=== PATIENT | male | born 1955 | race Hispanic/Latino ===

== ENCOUNTER 2017-07-19 21:54 | Emergency (ER) | payer OTHER ==
[2017-07-19] MEDS ORDERED: Lidocaine 1% Inj (20ml) IJ ONE (22:20)
--- NOTE | 2017-07-19 22:26 | ED PDOC ---
HPI: General Adult Time Seen by Provider: 07/19/17 21:57 Chief Complaint (Nursing): Abnormal Skin Integrity History Per: Patient Additional Complaint(s): Pt. presents with his brother and friend who states earlier today he fell backward while sitting on a railing. Pt. admits to drinking alcohol. States he drank 5 beers and 2 glasses of wine. Fall was not witnessed but pt. reports no LOC. Currently c/o pain at the site of impact. Denies N/V, neck pain, chest pain , abdominal pain, SOB, extremity pain, hip pain, pelvic pain. Past Medical History Reviewed: Historical Data, Nursing Documentation, Vital Signs Vital Signs: Last Vital Signs Temp 97.6 F 07/19/17 21:57 Pulse 90 07/19/17 21:57 Resp 18 07/19/17 21:57 BP 150/92 H 07/19/17 21:57 Pulse Ox 93 L 07/19/17 22:28 - Family History Family History: States: No Known Family Hx - Home Medications Home Medications: Ambulatory Orders Medication Instructions Recorded Cephalexin [cephalexin] 500 mg PO Q6 #28 cap 07/20/17 - Allergies Allergies/Adverse Reactions: Allergies Allergy/AdvReac Type Severity Reaction Status Date / Time FISH Allergy RASH Verified 07/19/17 21:56 Review of Systems ROS Statement: Except As Marked, All Systems Reviewed And Found Negative Neurological: Positive for: Headache Physical Exam - Reviewed Nursing Documentation Reviewed: Yes Vital Signs Reviewed: Yes - Physical Exam Appears: Positive for: Well, Non-toxic, No Acute Distress Head Exam: Negative for: ATRAUMATIC (6 inch stelate shaped superficial laceration on occipital scalp without swelling or active bleeding), NORMAL INSPECTION, NORMOCEPHALIC Skin: Positive for: Normal Color, Warm, DRY Eye Exam: Positive for: EOMI, Normal appearance, PERRL ENT: Positive for: Normal ENT Inspection Neck: Positive for: Normal, Painless ROM Cardiovascular/Chest: Positive for: Regular Rate, Rhythm Respiratory: Positive for: CNT, Normal Breath Sounds Gastrointestinal/Abdominal: Positive for: Normal Exam, Bowel Sounds, Soft Back: Positive for: Normal Inspection Extremity: Positive for: Normal ROM Neurologic/Psych: Positive for: Alert, Oriented - Laboratory Results Result Diagrams: 07/19/17 22:42 07/19/17 22:42 - ECG O2 Sat by Pulse Oximetry: 93 - Progress ED Course And Treament: Labs ordered. CT head w/o contrast ordered. Tetanus prophylaxis administered. Procedures - Time-Out Type of Procedure: Laceration repair Site of Procedure: occipital sclap Correct Patient (with visual ID + MR# on ID Band): Yes Correct Procedure: Yes Correct Site Marked: Yes PA/Tech: Vanessa - Laceration/Wound Repair Laceration repair Wound Length (cm): 15 Wound's Depth, Shape: superficial Wound Explored: clean Irrigated w/ Saline (ccs): 400 Betadine Prep?: Yes Anesthesia: 1% Lidocaine Wound Repaired With: [facility] (8) Wound Complexity: Intermediate Disposition - Clinical Impression Clinical Impression: Head injury, Scalp laceration, Alcohol intoxication - Patient ED Disposition Is Patient to be Admitted: No - Disposition Disposition: Routine/Home Disposition Time: 02:17 Condition: IMPROVED Additional Instructions: staple removal in 7 days Prescriptions: Cephalexin [cephalexin] 500 mg PO Q6 #28 cap Instructions: Head Injury (ED), Staple Care (ED), Alcohol Intoxication (ED) Forms: [facility] (Romansh)
[2017-07-19] MEDS ORDERED: Povidone Iodine Topical 10% Sol ONE (22:31)
[2017-07-19] MEDS ORDERED: Lidocaine 1% Inj (20ml) ONE (22:32)
[2017-07-19 22:49] LABS: BASO # 0.1 K/uL (0.0-0.2); EOS # 0.1 K/uL (0.0-0.7); EOS % 1.7 % (0.0-4.0); HEMATOCRIT 44.6 % (35.0-51.0); LYMPH # 2.7 K/uL (1.0-4.3); LYMPH % 36.1 % (20.0-40.0); MEAN CELL VOLUME 92.8 fl (80.0-94.0); MEAN CORPUSCULAR HEMOGLOBIN 32.2 pg (27.0-31.0); MEAN CORPUSCULAR HGB CONC 34.7 g/dL (33.0-37.0); MEAN PLATELET VOLUME 7.8 fl (7.2-11.7); MONO # 0.7 K/uL (0.0-0.8); MONO % 9.3 % (0.0-10.0); NEUT # 3.9 K/uL (1.8-7.0); NEUT % 51.9 % (50.0-75.0); NRBC % 0.1 % (0.0-0.0); WHITE BLOOD COUNT 7.4 K/uL (4.8-10.8)
[2017-07-19 22:59] LABS: ALB/GLOB RATIO 1.5 (1.0-2.1); ALCOHOL SERUM 232 mg/dl (0-10); ALKALINE PHOSPHATASE 67 U/L (38-126); ALT/SGPT 49 U/L (21-72); AST/SGOT 37 U/L (17-59); BILIRUBIN,TOTAL 0.4 mg/dl (0.2-1.3); BLOOD UREA NITROGEN 15 mg/dl (9-20); CALCIUM 8.9 mg/dL (8.4-10.2); CARBON DIOXIDE 21 mmol/L (22-30); CHLORIDE 108 mmol/L (98-107); GFR AFRICAN-AMERICAN > 60; GLUCOSE,RANDOM 110 mg/dL (75-110); POTASSIUM 3.9 MMOL/L (3.6-5.0); SODIUM 144 mmol/l (132-148); TOTAL PROTEIN 7.4 G/DL (6.3-8.2)
[2017-07-20 02:26] VITALS: BP 139/76; PULSE 79; RESP 16; TEMP 98.2; O2SAT 100
--- NOTE | 2017-07-20 09:52 | CT ---
PROCEDURE: CT HEAD WITHOUT CONTRAST. HISTORY: trauma COMPARISON: None available. TECHNIQUE: Axial computed tomography images were obtained through the head/brain without intravenous contrast. Radiation dose: Total exam DLP = 879.71 mGy-cm. This CT exam was performed using one or more of the following dose reduction techniques: Automated exposure control, adjustment of the mA and/or kV according to patient size, and/or use of iterative reconstruction technique. FINDINGS: HEMORRHAGE: No acute parenchymal, subarachnoid or extra-axial hemorrhage. Hemorrhage. BRAIN: There appears be some minor diffuse/confluent chronic periventricular white matter ischemic changes. Loss Mild volume loss VENTRICLES: No obstructive hydrocephalus. . Note made of a small cavum velum interpositum. CALVARIUM: No acute calvarial fractures. Small right posterior superior parietal scalp laceration and minor surrounding soft tissue swelling. PARANASAL SINUSES: Mild mucosal thickening seen within the mid left maxillary antrum several ethmoid air cells and right aspect of sphenoid sinus MASTOID AIR CELLS: Unremarkable as visualized. No inflammatory changes. OTHER FINDINGS: None. IMPRESSION: No acute intracranial hemorrhage. Small right posterior superior parietal scalp laceration and surrounding soft tissue swelling. Suspect minimal chronic periventricular white matter ischemic changes. Mild generalized volume loss. Preliminary report provided by overnight radiology service.
== END 2017-07-20 02:28 | disposition home or self-care (01) ==
LOC: H.ER 21:54
DX: S01.01XA Laceration without foreign body of scalp, initial encounter (principal); F10.129 Alcohol abuse with intoxication, unspecified; Z23 Encounter for immunization; S09.90XA Unspecified injury of head, initial encounter; W19.XXXA Unspecified fall, initial encounter; Y90.8 Blood alcohol level of 240 mg/100 ml or more